=== PATIENT | male | born 1955 | race Caucasian/White ===

== ENCOUNTER 2019-04-05 18:05 | Inpatient (IN) | payer OTHER ==
--- NOTE | 2019-04-05 18:41 | RAD REPORT ---
EXAM DESCRIPTION: RAD - Chest Single View - 04/05/2019 6:33 pm CLINICAL HISTORY: Chest pain;Dyspnea Chest pain. COMPARISON: <Comparisons> FINDINGS: Portable technique limits examination quality. Innumerable pulmonary nodules are present bilaterally likely representing metastatic disease or milia ry disease. The heart is normal in size. No displaced fractures.
[2019-04-05 19:15] LABS: Basophils % 0.9 % (0-1.3); Hematocrit 36.6 % (39.6-49.0); Lymphocytes % 11.2 % (15.3-44.8); MPV 8.6 fL (7.6-11.3); RBC Red Blood Cell Count 4.17 M/uL (4.33-5.43)
[2019-04-05 19:28] LABS: Protime INR 1.32
[2019-04-05 19:58] LABS: ALT/SGPT 26 U/L (12-78); Albumin 2.5 g/dL (3.4-5.0); Alkaline Phosphatase 223 U/L (45-117); BUN Blood Urea Nitrogen 12 mg/dL (7-18); Bicarbonate 25 mmol/L (21-32); Bilirubin Direct 0.3 mg/dL (0-0.2); Glucose Level 98 mg/dL (74-106); NT PRO-BNP 831 pg/mL (<125); Protein, Total 6.3 g/dL (6.4-8.2); Sodium Level 139 mmol/L (136-145); Troponin (Emerg Dept Use Only) < 0.02 ng/mL (0.0-0.045)
[2019-04-05 19:59] LABS: AST/SGOT 89 U/L (15-37); Potassium 4.3 mmol/L (3.5-5.1)
[2019-04-05] MEDS ORDERED: HYDROMORPHONE HCL 1 MG/ML INJ ONE (20:31)
--- NOTE | 2019-04-05 21:38 | ER ---
Nurse's Notes 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 Transition of care: patient was not received from another setting of care. Onset of symptoms was March 2019. Risk Assessment: Do you want to hurt yourself or someone else? Patient reports no desire to harm self or others. Care prior to arrival: None. 18:15 Method Of Arrival: Wheelchair sv 18:15 Acuity: LOUISA 3 sv 18:47 Initial Sepsis Screen: Does the patient meet any 2 criteria? No. Patient's initial ph sepsis screen is negative. Does the patient have a suspected source of infection? Yes: Productive cough/pneumonia. Triage Assessment: 18:15 General: Appears in no apparent distress. uncomfortable, Behavior is calm, cooperative, sv appropriate for age. Pain: Complains of pain in back and chest. Neuro: Level of Consciousness is awake, alert, obeys commands, Gait is steady. Respiratory: Reports shortness of breath Airway is patent Respiratory effort is even, unlabored, Respiratory pattern is regular, symmetrical, Onset: The symptoms/episode began/occurred 2 weeks ago, the patient has mild shortness of breath. Historical: - Allergies: 18:21 No Known Allergies; sv - Home Meds: 18:21 Methadone Oral [Active]; Aspirin Oral [Active]; sv - PMHx: 18:21 Back pain; eye spot; sv - PSHx: 18:21 Cholecystectomy; right hip; sv - Immunization history:: Adult Immunizations unknown. - Ebola Screening: : No symptoms or risks identified at this time. - Social history:: Smoking status: Patient/guardian denies using tobacco. Screenin:46 Abuse screen: Denies threats or abuse. Denies injuries from another. Nutritional ph screening: Had unintentional weight loss of 10 pounds or more. Tuberculosis screening: No symptoms or risk factors identified. Fall Risk None identified. Assessment: 18:32 General: Appears in no apparent distress. Behavior is calm, cooperative. Pain: Pain hb currently is 8 out of 10 on a pain scale. Neuro: Level of Consciousness is awake, alert, obeys commands, Oriented to person, place, time, situation. Cardiovascular: Heart tones S1 S2 present Capillary refill < 3 seconds Patient's skin is warm and dry. Rhythm is regular. Respiratory: Airway is patent Respiratory effort is even, unlabored, Respiratory pattern is regular, symmetrical, Breath sounds are clear bilaterally. GI: No signs and/or symptoms were reported involving the gastrointestinal system. : No signs and/or symptoms were reported regarding the genitourinary system. EENT: No signs and/or symptoms were reported regarding the EENT system. Derm: Skin is intact, is healthy with good turgor. Musculoskeletal: No signs and/or symptoms reported regarding the musculoskeletal system. 19:30 Reassessment: Patient appears in no apparent distress at this time. Patient and/or aa1 family updated on plan of care and expected duration. Pain level reassessed. Patient is alert, oriented x 3, equal unlabored respirations, skin warm/dry/pink. Awaiting CT scan. 21:00 Reassessment: Patient appears in no apparent distress at this time. Patient and/or aa1 family updated on plan of care and expected duration. Pain level reassessed. Patient is alert, oriented x 3, equal unlabored respirations, skin warm/dry/pink. Awaiting CT results. 21:30 Reassessment: Patient appears in no apparent distress at this time. Patient and/or aa1 family updated on plan of care and expected duration. Pain level reassessed. Patient is alert, oriented x 3, equal unlabored respirations, skin warm/dry/pink. Pt reports dilaudid did not help his pain. States, "I need something stronger. I take methadone every day for my pain." notified. 22:06 Reassessment: Patient appears in no apparent distress at this time. Patient and/or aa1 family updated on plan of care and expected duration. Pain level reassessed. Patient is alert, oriented x 3, equal unlabored respirations, skin warm/dry/pink. Awaiting bed assignement. 22:55 Reassessment: Patient appears in no apparent distress at this time. Patient and/or aa1 family updated on plan of care and expected duration. Pain level reassessed. Patient is alert, oriented x 3, equal unlabored respirations, skin warm/dry/pink. Report given to ERIC Macedo. Vital Signs: 18:21 BP 136 / 79; Pulse 86; Resp 24; Pulse Ox 95% ; Weight 76.2 kg; Height 5 ft. 10 in. sv (177.80 cm); Pain 8/10; 19:15 BP 115 / 66; Pulse 77; Resp 18; Temp 98.0; Pulse Ox 96% on R/A; aa1 20:20 BP 104 / 70; Pulse 73; Resp 16; Pulse Ox 97% on R/A; aa1 22:07 BP 141 / 89; Pulse 96; Resp 18; Pulse Ox 97% on R/A; Pain 8/10; aa1 18:21 Body Mass Index 24.11 (76.20 kg, 177.80 cm) sv ED Course: 18:08 Patient arrived in ED. mr 18:08 Gaviota Christianson DO is Private Physician. mr 18:20 Triage completed. sv 18:20 Liliam Garcia, ERIC is Primary Nurse. ph 18:21 Arm band placed on. sv 18:22 Po Cuellar MD is Attending Physician. gs 18:33 XRAY Chest (1 view) In Process Unspecified. EDMS 18:42 Missed attempt(s): 22 gauge in right antecubital area. Bleeding controlled, band aid hb applied, catheter tip intact. 18:47 Patient has correct armband on for positive identification. Bed in low position. Call ph light in reach. Side rails up X2. Pulse ox on. NIBP on. Door closed. Noise minimized. Warm blanket given. 18:49 Missed attempt(s): 20 gauge in right forearm. hb 18:52 Missed attempt(s): 22 gauge in left wrist. Bleeding controlled, band aid applied, hb catheter tip intact. 19:38 Radiology exam delayed due to lab results not completed at this time. (BUN/Creatinine). nj 20:30 Radiology exam delayed due to IV insertion attempt and/or patient not having vm2 appropriate IV at this time. 20:50 Inserted saline lock: 18 gauge in left upper arm, using aseptic technique. bb 21:13 CT Chest, Abdomen, Pelvis - W/Contrast In Process Unspecified. EDMS 21:35 Neto Luong MD is Hospitalizing Provider. gs 22:30 Inserted saline lock: 22 gauge in right forearm, using aseptic technique. rr5 22:53 No provider procedures requiring assistance completed. Patient admitted, IV remains in aa1 place. Administered Medications: 20:32 Drug: Dilaudid 1 mg Route: IM; Site: right deltoid; aa1 21:32 Follow up: Response: No adverse reaction; Pain is unchanged, physician notified; RASS: aa1 Alert and Calm (0) Outcome: 21:37 Decision to Hospitalize by Provider. gs 23:12 Admitted to Med/surg family with patient, via wheelchair, room 421, with chart, Report aa1 called to ERIC Macedo 23:12 Condition: stable 23:12 Instructed on the need for admit, Demonstrated understanding of instructions. 23:17 Patient left the ED. aa1 Signatures: Dispatcher [employer] EDAL Génesis Cerrato RN RN sv Autenrieth, Alissa RN RN aa1 Tram Garciaard, Carol, RN Liliam Moncada RN RN Shelby Bustillo, RN Jose Alfredo [facility] Po Cuellar MD MD Manny Garcia RN RN [id number]
--- NOTE | 2019-04-05 21:39 | EDPHYS ---
Physician Documentation [facility] Name: Remy Dowell Age: 64 yrs Sex: Male : 1955 Arrival Date: 04/05/2019 Time: 18:08 Bed 7 Private MD: Gaviota Christianson H ED Physician Po Cuellar HPI: 04/05 21:10 This 64 yrs old Male presents to ER via Wheelchair with complaints of gs Shortness Of Breath, Chest Pain, Back Pain, Abdominal Pain. 21:10 The patient has shortness of breath at rest, during heavy activity. Onset: The gs symptoms/episode began/occurred 2 week(s) ago. Duration: The symptoms are continuous. The patient's shortness of breath is aggravated by exertion. Associated signs and symptoms: Pertinent negatives: chest pain, diaphoresis, fever, NIGHT SWEATS. Severity of symptoms: At their worst the symptoms were moderate in the emergency department the symptoms are unchanged. The patient has not experienced similar symptoms in the past. The patient has not recently seen a physician. 21:31 RECENT UNINTENDED WEIGHTLOSS. gs Historical: - Allergies: 18:21 No Known Allergies; sv - Home Meds: 18:21 Methadone Oral [Active]; Aspirin Oral [Active]; sv - PMHx: 18:21 Back pain; eye spot; sv - PSHx: 18:21 Cholecystectomy; right hip; sv - Immunization history:: Adult Immunizations unknown. - Ebola Screening: : No symptoms or risks identified at this time. - Social history:: Smoking status: Patient/guardian denies using tobacco. ROS: 21:10 All other systems are negative. gs Exam: 21:31 Head/Face: Normocephalic, atraumatic. Eyes: Pupils equal round and reactive to light, gs extra-ocular motions intact. Lids and lashes normal. Conjunctiva and sclera are non-icteric and not injected. Cornea within normal limits. Periorbital areas with no swelling, redness, or edema. ENT: Nares patent. No nasal discharge, no septal abnormalities noted. Tympanic membranes are normal and external auditory canals are clear. Oropharynx with no redness, swelling, or masses, exudates, or evidence of obstruction, uvula midline. Mucous membranes moist. Neck: Trachea midline, no thyromegaly or masses palpated, and no cervical lymphadenopathy. Supple, full range of motion without nuchal rigidity, or vertebral point tenderness. No Meningismus. Chest/axilla: Normal chest wall appearance and motion. Nontender with no deformity. No lesions are appreciated. Cardiovascular: Regular rate and rhythm with a normal S1 and S2. No gallops, murmurs, or rubs. Normal PMI, no JVD. No pulse deficits. Respiratory: Lungs have equal breath sounds bilaterally, clear to auscultation and percussion. No rales, rhonchi or wheezes noted. No increased work of breathing, no retractions or nasal flaring. Abdomen/GI: Soft, non-tender, with normal bowel sounds. No distension or tympany. No guarding or rebound. No evidence of tenderness throughout. Back: No spinal tenderness. No costovertebral tenderness. Full range of motion. Skin: Warm, dry with normal turgor. Normal color with no rashes, no lesions, and no evidence of cellulitis. MS/ Extremity: Pulses equal, no cyanosis. Neurovascular intact. Full, normal range of motion. Neuro: Awake and alert, GCS 15, oriented to person, place, time, and situation. Cranial nerves II-XII grossly intact. Motor strength 5/5 in all extremities. Sensory grossly intact. Cerebellar exam normal. Normal gait. 21:31 Constitutional: The patient appears alert, awake. Vital Signs: 18:21 BP 136 / 79; Pulse 86; Resp 24; Pulse Ox 95% ; Weight 76.2 kg; Height 5 ft. 10 in. sv (177.80 cm); Pain 8/10; 19:15 BP 115 / 66; Pulse 77; Resp 18; Temp 98.0; Pulse Ox 96% on R/A; aa1 20:20 BP 104 / 70; Pulse 73; Resp 16; Pulse Ox 97% on R/A; aa1 22:07 BP 141 / 89; Pulse 96; Resp 18; Pulse Ox 97% on R/A; Pain 8/10; aa1 18:21 Body Mass Index 24.11 (76.20 kg, 177.80 cm) sv MDM: 19:02 Patient medically screened. 21:34 Differential diagnosis: Bronchitis Myocardial Infarction pneumonia. Data reviewed: vital signs, nurses notes, lab test result(s), EKG, radiologic studies. Counseling: I had a detailed discussion with the patient and/or guardian regarding: the historical points, exam findings, and any diagnostic results supporting the discharge/admit diagnosis, the need for further work-up and treatment in the hospital. 04/05 18:23 Order name: Basic Metabolic Panel; Complete Time: 20:16 04/05 18:23 Order name: CBC with Diff; Complete Time: 20:16 04/05 18:23 Order name: LFT's; Complete Time: 20:16 04/05 18:23 Order name: Magnesium; Complete Time: 20:16 04/05 18:23 Order name: NT PRO-BNP; Complete Time: 20:16 04/05 18:23 Order name: PT-INR; Complete Time: 20:16 04/05 18:23 Order name: Troponin (emerg Dept Use Only); Complete Time: 20:16 04/05 22:16 Order name: CBC with Automated Diff [facility] 04/05 22:16 Order name: CBC with Automated Diff [facility] 04/05 22:17 Order name: Comprehensive Metabolic Panel [facility] 04/05 22:17 Order name: Comprehensive Metabolic Panel [facility] 04/05 22:17 Order name: Lipid Profile [facility] 04/05 22:17 Order name: Lipid Profile [facility] 04/05 22:17 Order name: Magnesium [facility] 04/05 18:23 Order name: XRAY Chest (1 view); Complete Time: 18:51 04/05 18:23 Order name: EKG; Complete Time: 18:24 04/05 18:23 Order name: Cardiac monitoring; Complete Time: 18:55 04/05 19:02 Order name: CT Chest, Abdomen, Pelvis - W/Contrast 04/05 22:16 Order name: CONS Physician Consult [facility] 04/05 22:16 Order name: NPO [facility] 04/05 22:17 Order name: Magnesium [facility] 04/05 22:17 Order name: Phosphorus [facility] 04/05 22:17 Order name: Phosphorus [facility] 04/05 22:17 Order name: Protime (+INR) [facility] 04/05 22:17 Order name: Protime (+INR) [facility] 04/05 22:17 Order name: PTT, Activated Partial Thromb [facility] 04/05 22:17 Order name: PTT, Activated Partial Thromb [facility] 04/05 22:17 Order name: Troponin I [facility] 04/05 22:17 Order name: Troponin I [facility] 04/05 18:23 Order name: EKG - Nurse/Tech; Complete Time: 18:55 04/05 18:23 Order name: IV Saline Lock; Complete Time: 18:55 04/05 18:23 Order name: Labs collected and sent; Complete Time: 18:56 04/05 18:23 Order name: O2 Per Protocol; Complete Time: 18:35 04/05 18:23 Order name: O2 Sat Monitoring; Complete Time: 18:36 Administered Medications: 20:32 Drug: Dilaudid 1 mg Route: IM; Site: right deltoid; aa1 21:32 Follow up: Response: No adverse reaction; Pain is unchanged, physician notified; RASS: aa1 Alert and Calm (0) Disposition: 04/05/19 21:37 Hospitalization ordered by Neto Luong for Observation. Preliminary diagnosis is Neoplasm of uncertain behavior of trachea, bronchus and lung. - Bed requested for Telemetry/MedSurg (observation). - Status is Observation. aa1 - Condition is Stable. - Problem is new. - Symptoms are unchanged. UTI on Admission? No Signatures: Dispatcher [employer] EDNJ Génesis Cerrato RN RN Renuka Garcia RN RN aa Liliam Garcia, RN Mayra Gutierrez ph, RN RN Shelby العلي, Po Pinzon RN, MD MD Corrections: (The following items were deleted from the chart) 22:41 21:37 Hospitalization Ordered by Neto Luong MD for Observation. Preliminary cg diagnosis is Neoplasm of uncertain behavior of trachea, bronchus and lung. Bed requested for Telemetry/MedSurg (observation). Status is Observation. Condition is Stable. Problem is new. Symptoms are unchanged. UTI on Admission? No. 23:17 22:41 04/05/2019 21:37 Hospitalization Ordered by Neto Luong MD for Observation. aa1 Preliminary diagnosis is Neoplasm of uncertain behavior of trachea, bronchus and lung. Bed requested for Telemetry/MedSurg (observation). Status is Observation. Condition is Stable. Problem is new. Symptoms are unchanged. UTI on Admission? No. cg
[2019-04-05] MEDS ORDERED: MAGNESIUM HYDROXIDE 8% 30 ML PO PRN (22:08)
[2019-04-05] MEDS ORDERED: ACETAMINOPHEN 500 MG TAB PO PRN (22:08)
[2019-04-05 23:44] VITALS: BMI 23.1
[2019-04-06] MEDS: NA CHLORIDE 0.9% 1,000 ML IV SCH ×2 (00:05→12:24)
[2019-04-06] MEDS: FENTANYL CITR 100 MCG/2 ML IV PRN ×5 (00:06→20:51)
[2019-04-06] MEDS: TEMAZEPAM 15 MG CAP PO PRN ×2 (01:31→20:52)
[2019-04-06] MEDS: ONDANSETRON 4 MG/2 ML VIAL IV PRN ×4 (01:31→23:40)
[2019-04-06] MEDS: ALBUTEROL 2.5 MG/3 ML NEB SOL NEB SCH ×4 (02:00→20:00)
[2019-04-06] MEDS: IPRATROPIUM BROM 0.5MG/2.5ML NEB SCH ×4 (02:00→20:00)
[2019-04-06 02:03] LABS: Urine Appearance CLEAR; Urine Bilirubin NEGATIVE (NEG); Urine Blood NEGATIVE (NEG); Urine Color YELLOW; Urine Glucose NEGATIVE (NEG); Urine Protein NEGATIVE (NEG); Urine Specific Gravity >=1.030 (1.005-1.030); Urine pH 5.5 (5.0-7.0)
[2019-04-06 02:09] LABS: Urine Microscopic Reflex NO UMIC
[2019-04-06 04:53] LABS: Absolute Lymphocytes (CBC) 1.1 K/uL (0.7-4.9); Basophils % 0.3 % (0-1.3); Hematocrit 36.9 % (39.6-49.0); Lymphocytes % 11.8 % (15.3-44.8); MPV 8.5 fL (7.6-11.3); RBC Red Blood Cell Count 4.26 M/uL (4.33-5.43)
[2019-04-06 05:08] LABS: Protime INR 1.35
[2019-04-06 05:21] LABS: Albumin 2.6 g/dL (3.4-5.0); Bilirubin Total 0.8 mg/dL (0.2-1.0); Magnesium 2.1 mg/dL (1.8-2.4); Phosphorus 3.3 mg/dL (2.5-4.9); Potassium 4.3 mmol/L (3.5-5.1); Protein, Total 6.5 g/dL (6.4-8.2)
[2019-04-06] MEDS: CEFTRIAXONE/SWI 1gm 1 GM/10 ML SYR IV SCH ×2 (08:00→20:53)
[2019-04-06] MEDS ORDERED: HYDROMORPHONE HCL 0.5 MG/0.5 ML INJ IV PRN (08:15)
[2019-04-06] MEDS ORDERED: PNEUMOCOCCAL VACCINE 0.5 ML IMVAC ONE (09:00)
[2019-04-06] MEDS ORDERED: AZITHROMYCIN IV 500 MG in NA CHLORIDE 0.9% 250 ML IVPB SCH (09:00)
[2019-04-06] MEDS ORDERED: CEFTRIAXONE 1 GM/NS 50 ML 1 GM/50 ML BAG IV SCH (09:00)
--- NOTE | 2019-04-06 09:23 | EKG ---
Test Date: 2019-04-05 Test Time: 18:54:06 Plant Sciences Professor: ATILIO MEASUREMENT RESULTS: Intervals: Rate: 81 KS: 110 QRSD: 72 QT: 376 QTc: 436 [place]: P: 33 KS: 110 QRS: 50 T: 2 INTERPRETIVE STATEMENTS: Sinus rhythm with short KS ST & T wave abnormality, consider anterolateral ischemia Abnormal ECG Compared to ECG 01/25/2013 17:08:18 Short KS interval now present Possible ischemia now present Prolonged QT interval no longer present ST (T wave) deviation still present Electronically Signed On 04-06-19 09:23:10 CDT by Matthias Conte
--- NOTE | 2019-04-06 11:35 | RAD REPORT ---
EXAM DESCRIPTION: [id number] - Chest Abdomen Pelvis W Cont TECHNIQUE: Axial scans of the chest, abdomen and pelvis were performed with intravenous contrast inc luding computer reformations. Total Dose Length Product: 1650. This exam was performed according to our departmental dose-optimization program, which includes autom ated exposure control, adjustment of the mA and/or kV according to patient size and/or use of iterati ve reconstruction technique. Comparison studies: None. CLINICAL HISTORY: METASTATIC DISEASE. CT Chest: FINDINGS: Cardiac: Heart size: Heart size is within normal limits. Pericardial effusion None. There are multiple pericardial lymph nodes Vasculature: Aorta: Mild calcification. No aneurysm. Pulmonary arteries: Normal. Lungs: Innumerable nodules throughout both lungs. Varying size from a few millimeters up to about 1 .9 cm. Many appear along the pleural surfaces. There is no associated cavitation or calcification. Th ere is background chronic lung disease with scattered cysts noted. Pleura: There is a small right and minimal left pleural effusions. A component of pleural thickening- mass is seen near the left diaphragmatic crura. Mediastinum: There are multiple mediastinal nodes. There is bulky subcarinal adenopathy. Keri mass m easures 5.2 x 3.4 cm. Angela: There are bilateral hilar nodes. Musculoskeletal: Unremarkable IMPRESSION: 1. Extensive metastatic disease with innumerable pulmonary nodules . Mediastinal, hilar adenopathy. CT Abdomen and Pelvis: FINDINGS: Liver: Size: 16.0 cm. Parenchyma: Multiple hepatic masses. Predominantly at confluence multifocal areas of hepatic replacem ent in the right lobe involving 14 cm of the parenchyma. There is perihepatic stranding that extends to the hepatorenal space and right lateral conal fascia. The capsular contour of the liver is lobular . There is recanalization of the umbilical vein Vasculature: Portal and hepatic veins: I am concerned about tumor thrombus in the IVC for example on series 502 image 42. And series 501 image 10. Where there is a filling defect tracking from the right lobe hepatic masses . Potentially involving the middle and right hepatic veins as well. The main por jesica vein measures 1.2 cm. And appears grossly patent. Intrahepatic vascular anatomy in the right lobe in particular is distorted. Spleen: The spleen is enlarged and measures 15 cm. Gallbladder: Cholecystectomy. Bile ducts: No biliary dilatation. Pancreas: Pancreas is involuted. No pancreatic mass or pancreatic ductal dilatation is identified. Adrenal glands: No evidence for bilateral adrenal mass. Kidneys: Symmetric bilateral kidney function. No evidence for obstruction. Bladder: Grossly normal but partially distorted by artifact from the arthroplasty. Pelvis: The prostate is relatively small. Calcifications are noted. Intestinal Tract: Stomach and duodenum: Unremarkable Small bowel: No small bowel dilatation. Large bowel: Apparent thickening in the sigmoid is likely due to collapsed mucosa due to underdistent ion. Appendix: Normal. Mesentery and Omentum: There is no definite mass. Retroperitoneum: There is bulky adenopathy involving the retrocrural, periaortic compartments.. There is adenopathy in the root of the mesentery. Vasculature: Aorta: Moderate calcification without aneurysm. Including visceral and renal branches. Iliac arteries: Moderate calcification with multisegmental stenosis. Free fluid: There is a small amount of fluid in the abdomen and pelvis. Musculoskeletal: Musculature, abdominal wall and soft tissues: There is edema in the posterior subcutaneous soft tissu es of the back. Skeletal structures: Right hip arthroplasty. Narrowing of the left hip joint space. There is remodeli ng and sclerosis in the weightbearing portion of the left femoral head consistent with avascular necr osis. There is slight lumbar levoscoliosis. Lower lumbar disc narrowing. IMPRESSION: 1. 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 This could be due to metastatic disease or hepatoma. 2. Evidence for underlying cirrhosis. 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 4. 15 cm splenomegaly. 5. Small free fluid. 6. Bulky retroperitoneal and mesenteric lymphadenopathy. 7. Left hip avascular necrosis. 8. Extensive atherosclerosis. Electronically signed by: Andrew Tam MD 04/05/2019 9:54 PM CDT Due to temporary technical issues with the PACS/Fluency reporting system, reports are being signed by the in house radiologist as a courtesy to ensure prompt reporting. The interpreting radiologist is f ully responsible for the content of the report.
--- NOTE | 2019-04-06 13:22 | P.HP ---
Certification for Inpatient Patient admitted to: Observation With expected LOS: <2 Midnights Patient will require the following post-hospital care: None Practitioner: I am a practitioner with admitting privileges, knowledge of patient current condition, hospital course, and medical plan of care. Services: Services provided to patient in accordance with Admission requirements found in Title 42 Section 412.3 of the Code of Federal Regulations Patient History Date of Service: 04/05/19 Reason for admission: Persistent cough/weight loss / generalized weakness History of Present Illness: Patient is a 64-year-old gentleman who came to the hospital feeling weak and short of breath. He has been coughing quite a bit and has been having pain in the left upper quadrant. He also has some discomfort on the right flank region. He has lost about 23 lb in the last couple of months. His diet had changed to the family thought because he had recently he had hip surgery and was not doing as much that this may be the reason he had lost weight. However, he lost his appetite and was feeling weak and lethargic. The family decided to bring him into the hospital for evaluation. In the ER a CT scan revealed multiple metastatic lesions in the liver and lungs. Official report has been pending. He will be admitted to the hospital for further workup. Patient used to be a heavy drinker and a heavy tobacco user. He quit smoking 11 years ago and quit drinking 15 years ago. Allergies No Known Allergies Allergy (Verified 04/05/19 23:25) Home Medications: Aspirin Chewable [Aspirin Chewable*] 81 mg PO DAILY 04/05/19 Methadone HCl 40 mg PO BID 04/05/19 Methadone HCl [Methadone HCl*] 10 mg PO DAILY WITH BREAKFAST 04/05/19 - Past Medical/Surgical History Has patient received pneumonia vaccine in the past: No Diabetic: No -: Hepatitis C -: Cirrhosis -: Opioid Dependancy -: Back Problems -: Karen - Family History Father Family History: Reviewed- Non-Contributory - Social History Smoking Status: Former smoker Alcohol use: No Place of Residence: Home Review of Systems 10-point ROS is otherwise unremarkable Physical Examination - Vital Signs Temperature: 97.5 F Blood Pressure: 129/79 Pulse: 112 Respirations: 18 Pulse Ox (%): 95 - Physical Exam General: Alert, In no apparent distress, Oriented x3, Cachectic, Mild distress HEENT: Atraumatic, PERRLA, Mucous membr. moist/pink, EOMI, Sclerae nonicteric Neck: Supple, 2+ carotid pulse no bruit, No LAD, Without JVD or thyroid abnormality Respiratory: Clear to auscultation bilaterally, Normal air movement Cardiovascular: Regular rate/rhythm, Normal S1 S2, No murmurs Gastrointestinal: Normal bowel sounds, Non-distended, Tenderness Musculoskeletal: No clubbing, No swelling, No tenderness Integumentary: No rashes Neurological: Normal gait, Normal speech, Sensation intact, Cranial nerves 3-12 intact, Normal affect, Abnormal strength, Abnormal tone Lymphatics: No axilla or inguinal lymphadenopathy - Studies Laboratory Data (last 24 hrs) 04/05/19 18:55: PT 15.4 H, INR 1.32 04/05/19 18:55: WBC 9.2, Hgb 12.3 L, Hct 36.6 L, Plt Count 197 04/05/19 18:55: Sodium 139, Potassium 4.3, BUN 12, Creatinine 0.89, Glucose 98, Magnesium 2.0, Total Bilirubin 1.0, AST 89 H, ALT 26, Alkaline Phosphatase 223 H Assessment & Plan - Problems (Diagnosis) (1) Metastatic cancer to liver Current Visit: Yes Status: Acute (2) Metastatic malignant neoplasm to lung Current Visit: Yes Status: Acute (3) Cachexia Current Visit: Yes Status: Acute (4) Weight loss Current Visit: Yes Status: Acute (5) Anorexia Current Visit: Yes Status: Acute (6) Pain, abdominal, generalized Current Visit: Yes Status: Acute - Plan Plan: 1. We will workup patient with possible biopsy. Will talk to Radiology and get the most probable region to do biopsy. Patient is having diffuse pain and will manage his pain at with IV medication. At this time, we are awaiting official report of the CT scan. Patient appears to have metastatic disease to the liver and lungs. We will also get pulmonary consultation to assist in management. At this time, patient's prognosis appears to be poor but we do need tissue diagnosis. We will continue with further workup as well as pain control and gentle hydration. Will need to supplement patient's diet to assist with his caloric intake. Patient will be admitted to the hospital for inpatient workup. Discharge Plan: Home Plan to discharge in: 48 Hours - Advance Directives Does patient have a Living Will: No Does patient have a Durable POA for Healthcare: No - Code Status/Comfort Care Code Status Assessed: Yes Code Status: Full Code Critical Care: No Time Spent Managing PTS Care (In Minutes): 45
[2019-04-06] MEDS: PROMETHAZINE 25 MG TABLET PO PRN ×2 (13:50→19:29)
--- NOTE | 2019-04-06 15:53 | P.PN ---
Subjective Date of Service: 04/06/19 Chief Complaint: Persistent cough/weight loss / generalized weakness Subjective: No new changes Patient seen and examined at bedside. at bedside. Chart reviewed and case discussed with nursing staff. Patient continues to complain of restlessness, pain everywhere and anorexia. Review of Systems 10-point ROS is otherwise unremarkable Physical Examination - Vital Signs Temperature: 97.5 F Blood Pressure: 129/79 Pulse: 112 Respirations: 18 Pulse Ox (%): 95 - Physical Exam General: Alert, Oriented x3, Cachectic, Mild distress, Moderate distress HEENT: Atraumatic, PERRLA, EOMI Neck: Supple, JVD not distended Respiratory: Clear to auscultation bilaterally, Normal air movement Cardiovascular: Regular rate/rhythm, Normal S1 S2 Gastrointestinal: Normal bowel sounds, No tenderness Musculoskeletal: No tenderness Integumentary: No rashes Neurological: Normal speech, Normal tone, Normal affect Lymphatics: No axilla or inguinal lymphadenopathy - Studies Laboratory Data (last 24 hrs) 04/05/19 18:55: PT 15.4 H, INR 1.32 04/05/19 18:55: WBC 9.2, Hgb 12.3 L, Hct 36.6 L, Plt Count 197 04/05/19 18:55: Sodium 139, Potassium 4.3, BUN 12, Creatinine 0.89, Glucose 98, Magnesium 2.0, Total Bilirubin 1.0, AST 89 H, ALT 26, Alkaline Phosphatase 223 H Assessment And Plan - Current Problems (Diagnosis) (1) Anorexia Current Visit: Yes Status: Acute (2) Cachexia Current Visit: Yes Status: Acute (3) Metastatic cancer to liver Current Visit: Yes Status: Acute (4) Metastatic malignant neoplasm to lung Current Visit: Yes Status: Acute (5) Weight loss Current Visit: Yes Status: Acute (6) Cirrhosis of liver Current Visit: No Status: Acute - Plan We will workup patient with possible biopsy. Will talk to Radiology and get the most probable region to do biopsy. Patient is having diffuse pain and will manage his pain at with IV medication. Patient appears to have metastatic disease to the liver and lungs. We will also get pulmonary consultation to assist in management. At this time, patient' s prognosis appears to be poor but we do need tissue diagnosis. We will continue with further workup as well as pain control and gentle hydration. Will need to supplement patient's diet to assist with his caloric intake.
[2019-04-06] MEDS: ENOXAPARIN 40 MG/0.4 ML SQ SCH (17:00)
[2019-04-06] MEDS ORDERED: ENOXAPARIN 40 MG/0.4 ML SQ SCH (17:00)
[2019-04-06] MEDS: HYDROMORPHONE HCL 0.5 MG/0.5 ML INJ IV PRN ×2 (18:16→23:41)
[2019-04-07] MEDS: NA CHLORIDE 0.9% 1,000 ML IV SCH ×2 (01:03→15:00)
[2019-04-07] MEDS: FENTANYL CITR 100 MCG/2 ML IV PRN ×4 (01:03→14:53)
[2019-04-07] MEDS ORDERED: HYDROMORPHONE HCL 1 MG/ML INJ IV ONE (01:39)
[2019-04-07] MEDS: ALBUTEROL 2.5 MG/3 ML NEB SOL NEB SCH ×5 (02:00→20:05)
[2019-04-07] MEDS: IPRATROPIUM BROM 0.5MG/2.5ML NEB SCH ×5 (02:00→20:05)
[2019-04-07] MEDS: ONDANSETRON 4 MG/2 ML VIAL IV PRN (04:49)
[2019-04-07] MEDS: HYDROMORPHONE HCL 0.5 MG/0.5 ML INJ IV PRN ×2 (05:30→21:15)
--- NOTE | 2019-04-07 08:23 | P.CNS ---
Date of Consult: 04/07/19 Chief Complaint: Persistent cough/weight loss / generalized weakness History of Present Illness: Patient is 64 years of age no prior medical history admitted with weight loss 23 lb admission precipitated by significant abdominal pain was found to have diffuse metastatic disease to the lungs liver and significant retroperitoneal adenopathy is a former smoker who is scheduled for a liver biopsy today he is in considerable amount of pain Allergies No Known Allergies Allergy (Verified 04/05/19 23:25) Home Medications: Aspirin Chewable [Aspirin Chewable*] 81 mg PO DAILY 04/05/19 Methadone HCl 40 mg PO BID 04/05/19 Methadone HCl [Methadone HCl*] 10 mg PO DAILY WITH BREAKFAST 04/05/19 - Past Medical/Surgical History Diabetic: No -: Hepatitis C -: Cirrhosis -: Opioid Dependancy -: Back Problems -: Karen - Family History Father Family History: Reviewed- Non-Contributory - Social History Smoking Status: Former smoker Alcohol use: No CD- Drugs: No Caffeine use: Yes Place of Residence: Home Review of Systems General: Weakness Respiratory: Shortness of Breath Gastrointestinal: Abdominal Pain Physical Examination Temp Pulse Resp BP Pulse Ox 97.4 F 116 H 18 169/95 H 94 04/07/19 04:00 04/07/19 04:00 04/07/19 05:56 04/07/19 04:00 04/07/19 05:56 General: Alert, Moderate distress HEENT: Atraumatic Neck: Supple Respiratory: Clear to auscultation bilaterally Cardiovascular: No edema, Regular rate/rhythm, Normal S1 S2 Gastrointestinal: Normal bowel sounds, Tenderness (Slight generalized tenderness no rebound or guarding) Musculoskeletal: No clubbing - Problems (1) Metastatic malignant neoplasm to lung Current Visit: Yes Status: Acute Plan: Patient is 64 years of age admitted with abdominal pain weight loss years diffuse metastatic disease below is a summary of his CT scan report history of hepatitis-C also has bulky retroperitoneal adenopathy Patient has been scheduled for liver biopsy pulmonary nodules are too small in addition patient also has mediastinal adenopathy. I have also given him more pain relief patient has cirrhosis of the liver abnormal LFTs IMPRESSION: 1. 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 This could be due to metastatic disease or hepatoma. 2. Evidence for underlying cirrhosis. 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 4. 15 cm splenomegaly. 5. Small free fluid. 6. Bulky retroperitoneal and mesenteric lymphadenopathy. 7. Left hip avascular necrosis. 8. Extensive atherosclerosis.
[2019-04-07] MEDS ORDERED: FENTANYL 25 MCG/PATCH TD SCH (09:00)
[2019-04-07] MEDS ORDERED: VITAMIN K (ADULT) 10 MG/ML SQ ONE (09:00)
[2019-04-07 09:43] LABS: Protime INR 1.44
[2019-04-07] MEDS ORDERED: NA CHLORIDE 0.9% 500 ML ONE (09:49)
[2019-04-07] MEDS ORDERED: FLUMAZENIL 0.1 MG/ML (5 mL VIAL) IV ONE (09:49)
[2019-04-07] MEDS ORDERED: FENTANYL CITR 100 MCG/2 ML ONE (09:49)
[2019-04-07] MEDS ORDERED: MIDAZOLAM HCL 5 MG/5 ML INJ ONE (09:50)
[2019-04-07] MEDS ORDERED: METOPROLOL TARTRATE 5 MG/5 ML INJ IV ONE (11:20)
--- NOTE | 2019-04-07 11:53 | P.PN ---
Subjective Date of Service: 04/07/19 Chief Complaint: Persistent cough/weight loss / generalized weakness Subjective: No new changes Patient seen and examined at bedside. at bedside. Chart reviewed and case discussed with nursing staff. Patient continues to complain of restlessness, pain everywhere and anorexia. He is pending liver biopsy today Review of Systems 10-point ROS is otherwise unremarkable Physical Examination - Vital Signs Temperature: 98.2 F Blood Pressure: 161/88 Pulse: 112 Respirations: 18 Pulse Ox (%): 98 - Physical Exam General: Cachectic, Moderate distress, Other (Ill appearing, looks older than stated age) HEENT: Atraumatic, PERRLA, EOMI Neck: Supple, JVD not distended Respiratory: Clear to auscultation bilaterally, Normal air movement Cardiovascular: Regular rate/rhythm, Normal S1 S2 Gastrointestinal: Normal bowel sounds, No tenderness Musculoskeletal: No tenderness Integumentary: No rashes Neurological: Normal speech, Normal tone, Normal affect Assessment And Plan - Current Problems (Diagnosis) (1) Anorexia Current Visit: Yes Status: Acute (2) Cachexia Current Visit: Yes Status: Acute (3) Metastatic cancer to liver Current Visit: Yes Status: Acute (4) Metastatic malignant neoplasm to lung Current Visit: Yes Status: Acute (5) Weight loss Current Visit: Yes Status: Acute (6) Cirrhosis of liver Current Visit: No Status: Acute - Plan -patient currently pending biopsy of the liver with IR. -Patient is having diffuse pain and will manage his pain at with IV medication. -Patient appears to have metastatic disease to the liver and lungs. -Pulmonary consultation, recommendations appreciated. -overall, poor prognosis especially if metastatic cancer. -Continue gentle hydration. -supplement patient's diet to assist with his caloric intake. Disposition: Pending biopsy today. Will need to discuss further once biopsy available. Pending symptomatic improvement.
[2019-04-07] MEDS: HYDROCODONE/APAP 5/325 MG TAB PO PRN (12:03)
[2019-04-07] MEDS: DOCUSATE NA 100 MG CAP PO SCH ×2 (12:31→21:16)
--- NOTE | 2019-04-07 13:21 | RAD REPORT ---
EXAM DESCRIPTION: US - Liver Biopsy Procedure - 04/07/2019 12:01 pm CLINICAL HISTORY: Liver biopsy, large right lobe liver mass, numerous lung parenchymal masses COMPARISON: CT chest abdomen and pelvis April 05 TECHNIQUE: Patient presents from the floor for ultrasound-guided liver biopsy. Patient has a very la rge mass filling the majority of the right lobe of the liver believed to be the primary lesion with n umerous small round presumed metastatic lesions throughout the lung parenchyma. Review of the images show the peripheral nodules to be relatively small. The larger nodules were in a more inaccessible location. Biopsy of the liver was determined to be most likely to yield diagnosis. IV access and physiologic monitors were in place. The ultrasound-guided liver biopsy procedure, risks and alternatives were discussed with the patient in detail. After answering all questions, both oral and written consent were obtained. Preliminary follow signs indicated the patient tachycardic at 117 BPM. Blood pressure was elevated. . PT/INR/PTT values or borderline but determined to be sufficient for biopsy. Platelet count was nat l range. Patient was off 81 milligram aspirin therapy for inadequate amount of time. After consent and time-out procedure, the patient was pre-medicated with Versed said 1.0 milligrams I V and fentanyl 100 micrograms IV. To obtain a reduced heart rate in improved blood pressure, the gage ent was also administered 5.0 milligrams metoprolol. After sufficient time, patient sedation level an d bile signs warranted additional medication. An additional 1.0 milligrams Versed at and 50 microgram s fentanyl administered along with an additional 2.5 milligrams metoprolol. Sedation level an blood p ressures were adequate for biopsy after the second round of medications. Access site had rt been selected in the inferior right lobe of the liver via a right lateral abdomina l approach. Skin was prepped and draped in the usual sterile fashion. Skin and deeper tissues down to the liver capsule were anesthetized with 1% lidocaine. Under direct sonographic visualization a 17 g auge introducer needle was advanced through the subcutaneous tissues and through the liver capsule. T ip was placed at the margin of a well-visualized liver mass. An 18 gauge 2 centimeter long biopsy nee dle was advanced through the introducer needle. A total of 3 core biopsies were obtained of the liver mass. Sonographic imaging during the biopsy show the core specimens to be obtained within the mass. All obtained biopsy specimens were given to pathology. At the conclusion of the procedure, the introd ucer needle was withdrawn. Direct pressure was applied to the skin puncture site an liver capsule. St erile bandage placed to the puncture site. After 4 minutes of external pressure to the right lateral abdomen, follow-up sonographic images showed no subcapsular or pericapsular hematoma. Patient was nilo keon on a right lateral decubitus position to with wide additional pressure to the liver puncture site . Patient was transferred back to the floor for continued care. Patient was monitored throughout the procedure by catheterization lab personnel. Vital signs were sta ble throughout the procedure. Vital signs, medication administration times contained within the nurse 's notes. Exam was completed with no immediate complications. Conscious sedation time was 40 minutes. IMPRESSION: Ultrasound-guided liver biopsy of a large right mass was completed as detailed. Biopsy s pecimens were given to pathology. Patient tolerated procedure well without immediate complication. Patient was transferred back to the floor for continued care.
[2019-04-07] MEDS: ENOXAPARIN 40 MG/0.4 ML SQ SCH (17:00)
[2019-04-07] MEDS: METHADONE HCL 10 MG TAB PO SCH ×2 (17:34→23:00)
[2019-04-07] MEDS: TEMAZEPAM 15 MG CAP PO PRN (21:17)
[2019-04-08] MEDS: ALBUTEROL 2.5 MG/3 ML NEB SOL NEB SCH ×3 (02:00→14:00)
[2019-04-08] MEDS: IPRATROPIUM BROM 0.5MG/2.5ML NEB SCH ×3 (02:00→14:00)
[2019-04-08] MEDS: HYDROMORPHONE HCL 0.5 MG/0.5 ML INJ IV PRN ×2 (03:12→12:12)
[2019-04-08] MEDS ORDERED: INFLUENZA VACCINE (for 3y+) 0.5 ML DOSE IMVAC ONE (08:00)
[2019-04-08] MEDS: DOCUSATE NA 100 MG CAP PO SCH (09:07)
[2019-04-08] MEDS: METHADONE HCL 10 MG TAB PO SCH ×2 (09:07→14:00)
[2019-04-08] MEDS: NA CHLORIDE 0.9% 1,000 ML IV SCH (09:11)
--- NOTE | 2019-04-08 12:38 | P.DS ---
Admission Date: 04/08/19 Discharge Date: 04/08/19 Disposition: ROUTINE DISCHARGE Discharge Condition: FAIR Reason for Admission: Persistent cough/weight loss / generalized weakness Consultations: Pulmonology - Problems (1) Anorexia Current Visit: Yes Status: Acute (2) Cachexia Current Visit: Yes Status: Acute (3) Metastatic cancer to liver Current Visit: Yes Status: Acute (4) Metastatic malignant neoplasm to lung Current Visit: Yes Status: Acute (5) Weight loss Current Visit: Yes Status: Acute (6) Cirrhosis of liver Current Visit: No Status: Acute Brief History of Present Illness: Patient is a 64-year-old gentleman who came to the hospital feeling weak and short of breath. He has been coughing quite a bit and has been having pain in the left upper quadrant. He also has some discomfort on the right flank region. He has lost about 23 lb in the last couple of months. His diet had changed to the family thought because he had recently he had hip surgery and was not doing as much that this may be the reason he had lost weight. However, he lost his appetite and was feeling weak and lethargic. The family decided to bring him into the hospital for evaluation. In the ER a CT scan revealed multiple metastatic lesions in the liver and lungs. Official report has been pending. He will be admitted to the hospital for further workup. Patient used to be a heavy drinker and a heavy tobacco user. He quit smoking 11 years ago and quit drinking 15 years ago. Hospital Course: Patient was admitted for multiple metastatic lesions in the liver and lungs. Pulmonology was consulted. Patient underwent a biopsy of the liver with IR. He was provided with IV pain medications to help manage his pain. Overall, patient has a poor prognosis. Case was discussed with Dr. Gillette. Patient will follow up with her office for further results and management. Patient did request pain medications to go home on. P.m. P. surgeon was done for him it seems that he has just been prescribed 270 pills of methadone at the beginning of this month. He does have a pain management physician. He was recommended that patient call his pain management physician today to help him over the weekend and have a follow up with him on Thursday for further pain management. Patient and verbalized understanding. He was discharged home in a safe and stable manner. Vital Signs/Physical Exam: Temp Pulse Resp BP Pulse Ox 97.9 F 118 H 18 121/67 100 04/08/19 07:53 04/08/19 07:53 04/08/19 12:12 04/08/19 07:53 04/08/19 12:12 General: Alert, Oriented x3, Mild distress HEENT: Atraumatic, PERRLA, EOMI Neck: Supple, JVD not distended Respiratory: Clear to auscultation bilaterally, Normal air movement Cardiovascular: Regular rate/rhythm, Normal S1 S2 Gastrointestinal: Normal bowel sounds, No tenderness Musculoskeletal: No tenderness Integumentary: No rashes Neurological: Normal speech, Normal tone, Normal affect Lymphatics: No axilla or inguinal lymphadenopathy Laboratory Data at Discharge: WBC 9.5 K/uL (4.3-10.9) 04/06/19 04:30 Hgb 12.5 g/dL (13.6-17.9) L 04/06/19 04:30 Hct 36.9 % (39.6-49.0) L 04/06/19 04:30 Plt Count 196 K/uL (152-406) 04/06/19 04:30 PT 16.8 SECONDS (9.5-12.5) H 04/07/19 09:29 INR 1.44 04/07/19 09:29 APTT 37.4 SECONDS (24.3-36.9) H 04/06/19 04:30 Sodium 139 mmol/L (136-145) 04/06/19 04:30 Potassium 4.3 mmol/L (3.5-5.1) 04/06/19 04:30 BUN 12 mg/dL (7-18) 04/06/19 04:30 Creatinine 0.86 mg/dL (0.55-1.3) 04/06/19 04:30 Glucose 88 mg/dL (74-106) 04/06/19 04:30 Phosphorus 3.3 mg/dL (2.5-4.9) 04/06/19 04:30 Magnesium 2.1 mg/dL (1.8-2.4) 04/06/19 04:30 Total Bilirubin 0.8 mg/dL (0.2-1.0) 04/06/19 04:30 AST 92 U/L (15-37) H 04/06/19 04:30 ALT 23 U/L (12-78) 04/06/19 04:30 Alkaline Phosphatase 221 U/L (45-117) H 04/06/19 04:30 Troponin I < 0.02 ng/mL (0.0-0.045) 04/06/19 00:30 Triglycerides 103 mg/dL (<150) 04/06/19 04:30 Cholesterol 156 mg/dL (<200) 04/06/19 04:30 HDL Cholesterol 28 mg/dL (40-60) L 04/06/19 04:30 Cholesterol/HDL Ratio 5.57 04/06/19 04:30 Home Medications: Aspirin Chewable [Aspirin Chewable*] 81 mg PO DAILY 04/05/19 Methadone HCl 40 mg PO BID 04/05/19 Methadone HCl [Methadone HCl*] 10 mg PO DAILY WITH BREAKFAST 04/05/19 Tramadol HCl [Ultram] 50 mg PO Q6HP PRN #15 tablet 04/08/19 New Medications: Tramadol HCl [Ultram] 50 mg PO Q6HP PRN #15 tablet PRN Reason: Pain Scale 8-10 (Severe) Patient Discharge Instructions: Please follow up with the primary care physician in 2-3 days. Please follow up with Oncology, information has been provided to you. Information has also been faxed over to their clinic and they should be calling you. If you do not hear from them in the next few days, please call and schedule an appointment. Please follow up with the pain management physician in the next couple of days. Return to the emergency room for worsening symptoms. Diet: Regular Activity: Ad branden Followup: Gaviota Christianson DO, DO [Primary Care Provider] - Kasey Tovar MD [ACTIVE - CAN ADMIT] - Time spent managing pt's care (in minutes): 55
[2019-04-08 15:03] VITALS: BP 120/67; TEMP 97.4
[2019-04-08] MEDS: HYDROCODONE/APAP 5/325 MG TAB PO PRN (15:47)
[2019-04-08 16:10] VITALS: O2SAT 100
[2019-04-08] MEDS: ENOXAPARIN 40 MG/0.4 ML SQ SCH (17:00)
== END 2019-04-08 17:10 | disposition home or self-care (01) | DRG 641 ==
LOC: ER 18:05 → ERHOLD 22:09 → 4TH 22:56 → OBSVTOIN 04-08 08:22
PROVIDERS: ADMIT Hospitalist; ATTEND Hospitalist
PROC: 0FB03ZX Excision of Liver, Percutaneous Approach, Diagnostic (ICD-10-PCS; principal; 2019-04-08)
DX: R63.0 Anorexia (principal); R64 Cachexia; C78.00 Secondary malignant neoplasm of unspecified lung; C78.7 Secondary malignant neoplasm of liver and intrahepatic bile duct; Z68.23 Body mass index [BMI] 23.0-23.9, adult; Z86.19 Personal history of other infectious and parasitic diseases; K74.60 Unspecified cirrhosis of liver; R10.12 Left upper quadrant pain
CPT/HCPCS: 36415; 47000; 71045; 71260; 74177; 80048; 80053; 80061; 80076; 81003; 83735; 83880; 84100; 84484; 85025; 85610; 85730; 87040; 88305; 88307; 93005; 94640; 94760; 96372; 99285; G0378; J0456; J0696; J1170; J2250; J2405; J3010; J3430; J7030; Q9967